=== PATIENT | female | born 1940 | race Caucasian/White ===

== ENCOUNTER 2016-09-24 17:03 | Emergency (ER) | payer OTHER, MEDICARE ==
[~2016-09-24] VITALS: Ht 162.6 cm; Wt 87.3 kg
[~2016-09-24 17:03] MED LIST: ALTACE2.5 M1 PO; ALTACE2.5 MG PO; AMARYL4 MG PO; AMITRIPTYLINE H50 MG PO; AUGMENTIN875 MG PO; Aspirin Chewable PO; BUSPAR5 MG PO; CARTIA XT240 MG PO; CLEOCIN300 MG PO; CLOPIDOGREL75 MG PO; COUMADIN,JANTOVE2 MG PO; COUMADIN2 MG PO; COUMADIN3 MG PO; COUMADIN4 MG PO; CRESTOR10 MG PO; Colace PO; DIGITEK125 MC2 PO; DIGOX125 MCG PO; DIGOXIN125 MCG PO; DILTIAZEM 24HR240 MG PO; DILTIAZEM ER240 M1 PO; DUONEB 2.5-0.5 M3 ML AEROSOL; ENDOCET 5-3251 EACH; FENOFIBRATE160 M1 NG; FLORASTOR250 MG PO; FUROSEMIDE20 MG PO; GABAPENTIN400 MG PO; GABAPENTIN800 MG PO; GLIMEPIRIDE1 MG PO; GLIPIZIDE10 MG PO; GLUCOPHAGE1000 MG PO; HUMALOG100 UNIT/2 SC; JANUVIA100 MG PO; LANTUS 10100 UNITS/ SC; LANTUS 3 M100 UNITS1 SC; LANTUS 3 M100 UNITS1 SQ; LASIX20 MG PO; LEVAQUIN500 MG PO; LIDODERM 5% P1 PATCH TD; LOPERAMIDE2 MG PO; LOPRESSOR50 MG PO; Lanoxin,Digitek PO; Lasix PO; Lopressor PO; METFORMIN HCL1000 M1 PO; METFORMIN HCL1000 MG PO; METOPROLOL TART50 MG PO; MONTELUKAST SOD10 MG PO; MUCINEX600 MG PO; NEURONTIN300 MG PO; NEURONTIN600 MG PO; NIFEDIPINE ER60 MG PO; NOVOLOG PE100 UNITS/ SC; PANTOPRAZOLE SO40 MG PO; PERCOCET 5/31 TABLET PO; PLAVIX75 MG PO; PLETAL50 MG PO; PRAVASTATIN SOD40 MG PO; PRED FORTE100 DROP/5 BOTH EYES; PREDNISONE10 MG PO; PREDNISONE50 MG PO; PROTONIX40 MG PO; Plavix PO; RANITIDINE HCL150 MG PO; SAVELLA50 MG PO; TAMIFLU30 MG PO; THERA-D2000 UNIT PO; THERA1 EAC1 PO; VIBRAMYCIN100 MG PO; VIT D PO; VITAMIN D-32000 UNI2 PO; Vicodin,Norco 5/325 PO; Victoza SC; WARFARIN SODIU2.5 MG PO; WARFARIN SODIUM2 MG PO; WELCHOL3.75 GM PO; ZANTAC150 MG PO; ZOFRAN ODT4 MG PO; ZOFRAN4 MG PO
[2016-09-24] MEDS ORDERED: PERCOCET 5/31 TABLET PO (22:12)
[2016-09-25 02:41] VITALS: BP 139/100
== END 2016-09-24 23:29 | disposition home or self-care (01) ==
LOC: EME 17:03
DX: S40.011A Contusion of right shoulder, initial encounter (principal); S00.83XA Contusion of other part of head, initial encounter; I10 Essential (primary) hypertension; W17.89XA Other fall from one level to another, initial encounter; I25.2 Old myocardial infarction; E78.5 Hyperlipidemia, unspecified; E11.9 Type 2 diabetes mellitus without complications; Z79.84 Long term (current) use of oral hypoglycemic drugs; J45.909 Unspecified asthma, uncomplicated; K21.9 Gastro-esophageal reflux disease without esophagitis; Z79.899 Other long term (current) drug therapy; Z90.49 Acquired absence of other specified parts of digestive tract
CPT/HCPCS: 70450; 73030; 99281; 99284

== ENCOUNTER 2016-10-05 13:59 | Emergency (ER) | payer OTHER, MEDICARE ==
[~2016-10-05] VITALS: Ht 162.6 cm; Wt 84.0 kg
[2016-10-05 20:18] VITALS: BP 140/92
== END 2016-10-05 20:19 | disposition home or self-care (01) ==
LOC: EME 13:59
DX: M79.604 Pain in right leg (principal); Z86.718 Personal history of other venous thrombosis and embolism; Z79.01 Long term (current) use of anticoagulants; I11.0 Hypertensive heart disease with heart failure; I50.9 Heart failure, unspecified; E11.9 Type 2 diabetes mellitus without complications; E78.5 Hyperlipidemia, unspecified; I25.2 Old myocardial infarction; I48.91 Unspecified atrial fibrillation; Z79.84 Long term (current) use of oral hypoglycemic drugs; Z79.4 Long term (current) use of insulin; K21.9 Gastro-esophageal reflux disease without esophagitis; J45.909 Unspecified asthma, uncomplicated; Z88.6 Allergy status to analgesic agent; Z88.1 Allergy status to other antibiotic agents; Z79.899 Other long term (current) drug therapy; Z90.49 Acquired absence of other specified parts of digestive tract
CPT/HCPCS: 73564; 73590; 93971; 99281; 99284

== ENCOUNTER 2016-10-31 18:59 | Emergency (ER) | payer OTHER, MEDICARE ==
[~2016-10-31] VITALS: Ht 162.6 cm; Wt 84.0 kg
[2016-10-31 19:24] LABS: BASE EXCESS -16.3 mEq/L (-3 to +3); CARBOXY HGB 1.8 % (0-5); METHEMOGLOBIN 1.1 % (0-1.5); PCO2 36 mm Hg (35-45); PO2 87 mm Hg (80-100)
[2016-10-31 19:25] LABS: COMMENTS - BLOOD GASES A+C+; DEVICE NON REBREATHER; FI02 100 %; O2 FLOW 15 L/MIN; SITE LR; pH 7.13 (7.35-7.45)
[2016-10-31 20:20] LABS: BASE EXCESS -13.9 mEq/L (-3 to +3); BICARBONATE 15.8 mEq/L (22-26); CARBOXY HGB 2.2 % (0-5); METHEMOGLOBIN 0.8 % (0-1.5); PCO2 51 mm Hg (35-45); PO2 72 mm Hg (80-100)
[2016-10-31 20:21] LABS: COMMENTS - BLOOD GASES A+C+; DEVICE 980; FI02 100 %; MECHANICAL RATE 16 resp/min; MODE A/C; PEEP 8 CM/H20; SITE LR; TIDAL VOLUME 400 ML
[2016-10-31 20:43] LABS: BASOPHIL COUNT 0.1 K/uL (0-0.1); EOSINOPHIL (%) 0.3 % (0-5); EOSINOPHIL COUNT 0.1 K/uL (0-0.3); HEMATOCRIT 42.3 % (36.0-46.0); IMMATURE GRANULOCYTE COUNT 0.2 K/uL; INSTRUMENT ABS NEUTROPHIL CT 18.3 K/uL; LYMPHOCYTE COUNT 3.2 K/uL (1.0-2.8); MCH 30.9 PG (29.0-34.0); MCHC 31.4 G/DL (30.0-36.0); MCV 98.1 FL (83-99); MONOCYTE (%) 2.7 % (3-12); MONOCYTE COUNT 0.6 K/uL (0-0.8); NEUTROPHIL (%) 81.3 % (45-76); NEUTROPHIL COUNT 18.3 K/uL (1.8-6.4); PLATELET COUNT 233 K/uL (156-360); RBC DIS.WIDTH-CV 13.2 % (11.8-14.6); RBC DIS.WIDTH-SD 47.6 % (39-53); RED BLOOD COUNT 4.31 M/uL (3.80-5.20); WHITE BLOOD COUNT 22.5 K/uL (4.1-10.2)
[2016-10-31 20:52] LABS: INTER. NORMALIZED RATIO 1.2; PROTHROMBIN TIME 13.2 SEC (10.2-12.9)
[2016-10-31 20:55] LABS: PTT 28.8 SEC (25-37)
[2016-10-31 20:57] LABS: CHLORIDE 107 mEq/L (99-109); SODIUM 138 mEq/L (136-147)
[2016-10-31 21:00] LABS: ANION GAP 17 MEQ/L (2-14)
[2016-10-31 21:03] LABS: GFR ESTIMATE (CALCULATED) 29 mL/min/
[2016-10-31 21:04] LABS: TROP-I INTERPRETATION NEGATIVE; TROPONIN-I 0.03 ng/mL (0.0-0.30); UREA NITROGEN (BUN) 23 mg/dL (9-23)
[2016-10-31 21:09] LABS: GLUCOSE 498 mg/dL (70-99)
[2016-10-31 21:24] VITALS: BP 58/106
== END 2016-10-31 21:26 | disposition short-term general hospital (02) ==
LOC: EME → EDBD 18:59 → EME 18:59
PROVIDERS: Emergency Medicine
PROC: 0BH17EZ Insertion of Endotracheal Airway into Trachea, Via Natural or Artificial Opening (ICD-10-PCS; principal; 2016-10-31)
DX: I11.0 Hypertensive heart disease with heart failure (principal); I50.9 Heart failure, unspecified; J96.90 Respiratory failure, unspecified, unspecified whether with hypoxia or hypercapnia; I82.402 Acute embolism and thrombosis of unspecified deep veins of left lower extremity; K92.2 Gastrointestinal hemorrhage, unspecified; E13.10 Other specified diabetes mellitus with ketoacidosis without coma; N28.9 Disorder of kidney and ureter, unspecified; I48.91 Unspecified atrial fibrillation; E78.5 Hyperlipidemia, unspecified; Z79.4 Long term (current) use of insulin
CPT/HCPCS: 36600; 71010; 80048; 82803; 83605; 83880; 84484; 85025; 85610; 85730; 86870; 86900; 86901; 86905; 87070; 87205; 93005; 94002; 99281; 99285